=== PATIENT | female | born 1980 | race Caucasian/White ===

== ENCOUNTER 2023-11-17 15:16 | Emergency (ER) | payer MEDICAID ==
[~2023-11-17] VITALS: Ht 165.1 cm; Wt 99.8 kg
[2023-11-17 15:36] VITALS: BP 194/115; PULSE 90; RESP 16; TEMP 98.6; O2SAT 100
== END 2023-11-17 18:05 | disposition left against medical advice (07) ==
LOC: ER 15:16
DX: R05.9 Cough, unspecified (principal); Z53.21 Procedure and treatment not carried out due to patient leaving prior to being seen by health care provider